=== PATIENT | female | born 1980 | race Hispanic/Latino ===

== ENCOUNTER 2018-07-21 09:56 | Emergency (ER) | payer OTHER ==
[2018-07-21 11:07] LABS: BASOPHILS % (AUTO) 0.2 % (0.0-5.0); EOSINOPHILS % (AUTO) 1.3 % (0.0-8.0); HEMATOCRIT 35.8 % (36-48); LYMPHOCYTES % (AUTO) 22.5 % (21.0-51.0); MEAN CORPUSCULAR HEMOGLOBIN 26.4 pg (27.0-33.0); MEAN CORPUSCULAR HGB CONC 33.8 g/dL (32.0-36.0); MEAN CORPUSCULAR VOLUME 78.1 fL (79-99); MONOCYTES % (AUTO) 4.8 % (3.0-13.0); NEUTROPHILS % (AUTO) 71.2 % (40.0-77.0); PLATELET COUNT (AUTO) 216 K/uL (130-400); RED BLOOD CELL COUNT(AUTO) 4.59 MIL/uL (4.00-5.50); RED CELL DISTRIBUTION WIDTH 16.6 % (11.0-15.5); WHITE BLOOD COUNT (AUTO) 6.9 K/uL (4.8-10.8)
[2018-07-21] MEDS ORDERED: KETOROLAC TROMETHAMINE 30MG/ML ONE (11:34)
[2018-07-21 12:09] LABS: ERYTHROCYTE SEDIMENTATION RATE 20 MM/HR (0-20)
== END 2018-07-21 14:27 | disposition home or self-care (01) ==
LOC: EDH 09:56
DX: R07.89 Other chest pain (principal)
CPT/HCPCS: 36415; 71045; 73030; 81025; 85025; 85651; 86140; 93005; 96374; 99285; J1885

== ENCOUNTER 2022-01-30 03:46 | Emergency (ER) | payer MEDICAID, OTHER ==
[~2022-01-30] VITALS: Ht 160 cm; Wt 73.0 kg
[2022-01-30 04:23] LABS: BASOPHILS % (AUTO) 0.2 % (0.0-5.0); EOSINOPHILS % (AUTO) 1.6 % (0.0-8.0); HEMATOCRIT 28.5 % (36-48); LYMPHOCYTES % (AUTO) 6.9 % (21.0-51.0); MEAN CORPUSCULAR HEMOGLOBIN 20.7 pg (27.0-33.0); MEAN CORPUSCULAR HGB CONC 30.5 g/dL (32.0-36.0); MEAN CORPUSCULAR VOLUME 67.7 fL (79-99); MONOCYTES % (AUTO) 8.2 % (3.0-13.0); NEUTROPHILS % (AUTO) 82.6 % (40.0-77.0); PLATELET COUNT (AUTO) 176 K/uL (130-400); RED BLOOD CELL COUNT(AUTO) 4.21 MIL/uL (4.00-5.50); RED CELL DISTRIBUTION WIDTH 20.1 % (11.0-15.5); WHITE BLOOD COUNT (AUTO) 11.3 K/uL (4.8-10.8)
[2022-01-30 04:24] LABS: BILIRUBIN,URINE Negative (NEGATIVE); COLOR,URINE Yellow (YELLOW); GLUCOSE, URINE (UA) Negative (NEGATIVE); KETONES,URINE Negative (NEGATIVE); LEUKOCYTE ESTERASE ,URINE Large (NEGATIVE); NITRATE,URINE Positive (NEGATIVE); OCCULT BLOOD,URINE Negative (NEGATIVE); PH,URINE 6.5 (5.0-8.0); PROTEIN,URINE Trace mg/dL (NEGATIVE); UROBILINOGEN,URINE 0.2 mg/dL (0.2-1.0)
[2022-01-30 04:29] LABS: APPEARANCE,URINE SLIGHTLY CLOUDY (CLEAR)
[2022-01-30] MEDS ORDERED: ACETAMINOPHEN 500 MG TABLET PO ONE (04:30)
[2022-01-30] MEDS ORDERED: 0.9%NACL 1000ML 1,000 ML IV ONE (04:30)
[2022-01-30] MEDS ORDERED: KETOROLAC 30MG VIAL (30MG/ML) IVP ONE (04:30)
[2022-01-30] MEDS ORDERED: ACET-66 PO (04:38)
[2022-01-30] MEDS ORDERED: CEPH500B PO (04:38)
[2022-01-30] MEDS ORDERED: IBUP-2070 PO (04:38)
[2022-01-30 04:41] LABS: CREATININE 0.7 mg/dL (0.5-1.5); POTASSIUM 3.4 mmol/L (3.5-5.1)
[2022-01-30 04:43] LABS: BACTERIA,URINE Few /HPF (None Seen)
[2022-01-30 04:45] LABS: ALBUMIN 3.8 g/dL (3.5-5.0); BILIRUBIN,TOTAL 0.6 mg/dL (0.2-1.0); TOTAL PROTEIN, SERUM 7.8 g/dL (6.0-8.3)
[2022-01-30 05:00] VITALS: BP 96/55
[2022-01-30] MEDS ORDERED: CEFTRIAXONE 1G VIAL IVP ONE (05:00)
== END 2022-01-30 05:09 | disposition home or self-care (01) ==
LOC: EDH 03:46
DX: N39.0 Urinary tract infection, site not specified (principal); Z20.822 Contact with and (suspected) exposure to COVID-19; Z79.1 Long term (current) use of non-steroidal anti-inflammatories (NSAID)
CPT/HCPCS: 36415; 80053; 81001; 85025; 87088; 87635; 87804 ×2; 87880; 96361; 96374; 96375; 99284; C9803; J0696; J1885; J7030